=== PATIENT | female | born 1955 | race Caucasian/White ===

== ENCOUNTER → 2020-05-07 | Outpatient (CLI) | payer MEDICAID ==
[~2020-05-07] MED LIST: CHOL100053 PO; FURO40TA5 PO; LEVO137T2 PO; LISI40TA4 PO; METO50TA18 PO; PANT40TA54 PO; REGADENOSON 0.4 MG/5 ML PF SYG IVP SCH
== END | disposition home or self-care (01) ==
LOC: SHCH 07:40
PROVIDERS: ATTEND Internal Medicine Cardiovascular Disease
DX: I35.0 Nonrheumatic aortic (valve) stenosis (principal); R07.9 Chest pain, unspecified; I10 Essential (primary) hypertension; R10.9 Unspecified abdominal pain; R51.9 Headache, unspecified; R11.0 Nausea
CPT/HCPCS: 78452; 93017; 96374; A9500 ×2; J2785

== ENCOUNTER → 2023-06-18 | Outpatient (CLI) | payer MEDICARE ==
[~2023-06-18] MED LIST changes: -LISI40TA4 PO; +LISI40TA9 PO; -REGADENOSON 0.4 MG/5 ML PF SYG IVP SCH
[2023-06-18 12:20] LABS: BASOPHILS # (AUTO) 0.02 K/uL (0.00-0.20); BASOPHILS % (AUTO) 0.2 % (0.0-5.0); EOSINOPHILS # (AUTO) 0.22 K/uL (0.00-0.70); EOSINOPHILS % (AUTO) 2.6 % (0.0-8.0); IMMATURE GRANULOCYTE ABSOLUTE 0.05 K/uL (0-1); LYMPHOCYTES # (AUTO) 2.5 K/uL (1.0-4.8); LYMPHOCYTES % (AUTO) 29.9 % (21.0-51.0); MEAN CORPUSCULAR HEMOGLOBIN 26.6 pg (27.0-33.0); MEAN CORPUSCULAR HGB CONC 32.5 g/dL (32.0-36.0); MEAN CORPUSCULAR VOLUME 81.8 fL (79-99); MONOCYTES # (AUTO) 0.6 K/uL (0.1-1.0); MONOCYTES % (AUTO) 7.1 % (3.0-13.0); NEUTROPHILS % (AUTO) 59.6 % (40.0-77.0); PLATELET COUNT (AUTO) 239 K/uL (130-400); RED BLOOD CELL COUNT(AUTO) 4.89 MIL/uL (4.00-5.50); RED CELL DISTRIBUTION WIDTH 14.9 % (11.0-15.5); WHITE BLOOD COUNT (AUTO) 8.4 K/uL (4.8-10.8)
[2023-06-18 12:53] LABS: ALBUMIN 3.4 g/dL (3.5-5.0); BILIRUBIN,TOTAL 0.7 mg/dL (0.2-1.0); POTASSIUM 4.6 mmol/L (3.5-5.1); T4 (THYROXINE) 12.7 ug/dL (4.7-13.3); THYROID STIMULATING HORMONE 1.59 uIU/mL (0.36-3.74); TOTAL PROTEIN, SERUM 7.1 g/dL (6.0-8.3)
== END | disposition home or self-care (01) ==
LOC: LAB 10:20
PROVIDERS: ATTEND Physician Assistant
DX: I10 Essential (primary) hypertension (principal)
CPT/HCPCS: 36415; 80053; 84436; 84443; 84479; 85025

== ENCOUNTER → 2023-09-07 | Outpatient (CLI) | payer MEDICARE, MEDICAID | END | disposition home or self-care (01) | LOC: RAH 10:26 | PROVIDERS: ATTEND Internal Medicine Cardiovascular Disease | DX: I35.0 Nonrheumatic aortic (valve) stenosis (principal) | CPT/HCPCS: 93306 ==

== ENCOUNTER → 2023-09-24 | Outpatient (CLI) | payer MEDICARE, MEDICAID ==
[2023-09-24] MEDS: REGADENOSON 0.4 MG/5 ML PF SYG IVP ONE (12:43)
== END | disposition home or self-care (01) ==
LOC: SHCH 09:05
PROVIDERS: ATTEND Internal Medicine Cardiovascular Disease
DX: I35.0 Nonrheumatic aortic (valve) stenosis (principal); I25.10 Atherosclerotic heart disease of native coronary artery without angina pectoris
CPT/HCPCS: 78452; 96374; 93017; J2785; A9500 ×2

== ENCOUNTER 2023-12-28 19:00 | Inpatient (IN) | payer MEDICARE, MEDICAID ==
[~2023-12-28] VITALS: Ht 157.5 cm; Wt 138.6 kg
[2023-12-28 12:09] LABS: BASOPHILS # (AUTO) 0.02 K/uL (0.00-0.20); BASOPHILS % (AUTO) 0.3 % (0.0-5.0); EOSINOPHILS # (AUTO) 0.32 K/uL (0.00-0.70); EOSINOPHILS % (AUTO) 4.3 % (0.0-8.0); IMMATURE GRANULOCYTE ABSOLUTE 0.03 K/uL (0-1); LYMPHOCYTES # (AUTO) 2.4 K/uL (1.0-4.8); LYMPHOCYTES % (AUTO) 31.8 % (21.0-51.0); MEAN CORPUSCULAR HEMOGLOBIN 26.9 pg (27.0-33.0); MEAN CORPUSCULAR HGB CONC 31.5 g/dL (32.0-36.0); MEAN CORPUSCULAR VOLUME 85.6 fL (79-99); MONOCYTES # (AUTO) 0.6 K/uL (0.1-1.0); MONOCYTES % (AUTO) 8.4 % (3.0-13.0); NEUTROPHILS % (AUTO) 54.8 % (40.0-77.0); PLATELET COUNT (AUTO) 190 K/uL (130-400); RED BLOOD CELL COUNT(AUTO) 4.79 MIL/uL (4.00-5.50); RED CELL DISTRIBUTION WIDTH 15.9 % (11.0-15.5); WHITE BLOOD COUNT (AUTO) 7.4 K/uL (4.8-10.8)
[2023-12-28 12:36] LABS: CREATININE 1.1 mg/dL (0.5-1.0)
[2023-12-28 12:52] VITALS: BP 145/55; PULSE 62; RESP 16
[~2023-12-28 19:00] MED LIST changes: -CHOL100053 PO; -FURO40TA5 PO; +MVI PO; +ONDA-243 PO; +TIRZ2.5P SQ
[2023-12-30] VITALS (28 sets, daily range): BP systolic 122–165; BP diastolic 55–81; PULSE 60–99; RESP 14–20; O2SAT 96–98
[2023-12-30] MEDS: 0.9%NACL 1000ML 1,000 ML IV ONE (08:22)
[2023-12-30] MEDS: CEFAZOLIN SODIUM 2 GM VIAL ONE (08:22)
[2023-12-30] MEDS ORDERED: FENTANYL CITRATE PF 50 MCG/1 ML 2ML VIAL ONE (10:45)
[2023-12-30] MEDS ORDERED: ROCURONIUM BROMIDE 10MG/1ML 5ML VL ONE ×2 (10:45→12:25)
[2023-12-30] MEDS ORDERED: LIDOCAINE PF 100MG/5ML (2%) SYRINGE 5ML ONE (10:45)
[2023-12-30] MEDS ORDERED: PROPOFOL 10 MG/ML 20ML VIAL IV ONE (10:45)
[2023-12-30] MEDS: ACETAMINOPHEN 1,000 MG/100 ML VIAL IV ONE (11:22)
[2023-12-30] MEDS: FAMOTIDINE 20MG VIAL IV ONE (11:22)
[2023-12-30] MEDS ORDERED: KETAMINE 50MG/ML SYRINGE 50 MG/ML DISP.SYRIN ONE (11:23)
[2023-12-30] MEDS: METRONIDAZOLE 500MG/100ML BAG 200 ML ONE (11:38)
[2023-12-30] MEDS ORDERED: DEXAMETHASONE SOD PHOSPHATE 10MG/ML 1ML VIAL ONE (11:59)
[2023-12-30] MEDS ORDERED: ONDANSETRON 4MG INJ ONE (11:59)
[2023-12-30] MEDS ORDERED: GLYCOPYRROLATE 0.2 MG/ML 5 ML VIAL ONE (12:08)
[2023-12-30] MEDS ORDERED: EPHEDRINE SULFATE 50 MG/ML AMPULE ONE (12:17)
[2023-12-30] MEDS: BUPIVACAINE/PF 0.5% 30ML VIAL ONE (13:31)
[2023-12-30] MEDS ORDERED: NEOSTIGMINE METHYLSULFATE 1MG/ML IV ONE (13:59)
[2023-12-30] MEDS ORDERED: KETOROLAC 30MG VIAL (30MG/ML) IV PRN (14:30)
[2023-12-30] MEDS ORDERED: ONDANSETRON 4MG INJ IVP PRN (14:30)
[2023-12-30] MEDS ORDERED: HYDROMORPHONE 1 MG INJ IVP PRN (14:30)
[2023-12-30] MEDS ORDERED: HYDROCODONE/ACETAMINOPHEN 7.5/325 MG 15 ML UDCUP PO PRN (14:30)
[2023-12-30] MEDS: INDOCYANINE GREEN 25 MG VIAL IJ ONE (14:39)
[2023-12-30] MEDS: ONDANSETRON 4MG INJ ONE (14:48)
[2023-12-30] MEDS: METOCLOPRAMIDE 10 MG/2 ML VIAL ONE (15:19)
[2023-12-30] MEDS: PROCHLORPERAZINE 10MG/2ML INJ IV PRN (15:55)
[2023-12-30] MEDS: LACTATED RINGERS 1000ML 1,000 ML IV SCH (15:56)
[2023-12-30] MEDS: ENOXAPARIN SODIUM 30 MG/0.3 ML SQ SCH (15:56)
[2023-12-30] MEDS: FAMOTIDINE 20MG VIAL IV SCH (20:43)
[2023-12-30] MEDS: METOPROLOL TARTRATE 50 MG TAB PO SCH (20:44)
[2023-12-30] MEDS: KETOROLAC 15MG/ML VIAL (15MG/ML) IV PRN (22:24)
[2023-12-30] MEDS: KETOROLAC 15MG/ML VIAL (15MG/ML) ONE (22:24)
[2023-12-31 04:00] VITALS: BP 120/76; PULSE 76; RESP 20
[2023-12-31 07:31] VITALS: BP 127/55; PULSE 82; RESP 18
[2023-12-31 08:00] VITALS: O2SAT 96
[2023-12-31 11:46] VITALS: BP 129/60; PULSE 72; RESP 19
[2023-12-31 16:01] VITALS: BP 122/40; PULSE 84; RESP 18
== END 2023-12-31 18:41 | disposition home or self-care (01) | DRG 621 ==
LOC: DAHIP 12-30 07:09 → 3DH 12-30 15:45
PROVIDERS: ADMIT Surgery; ATTEND Surgery
PROC: 0DJ08ZZ Inspection of Upper Intestinal Tract, Via Natural or Artificial Opening Endoscopic (ICD-10-PCS; 2023-12-30)
PROC: 0DBL4ZX Excision of Transverse Colon, Percutaneous Endoscopic Approach, Diagnostic (ICD-10-PCS; 2023-12-30)
PROC: 0D164ZA Bypass Stomach to Jejunum, Percutaneous Endoscopic Approach (ICD-10-PCS; principal; 2023-12-30 13:40)
PROC: 0DB64ZZ Excision of Stomach, Percutaneous Endoscopic Approach (ICD-10-PCS; 2023-12-30 13:40)
PROC: 0FB04ZX Excision of Liver, Percutaneous Endoscopic Approach, Diagnostic (ICD-10-PCS; 2023-12-30 13:40)
DX: E66.01 Morbid (severe) obesity due to excess calories (principal); K31.84 Gastroparesis; K30 Functional dyspepsia; E11.43 Type 2 diabetes mellitus with diabetic autonomic (poly)neuropathy; M13.88 Other specified arthritis, other site; I10 Essential (primary) hypertension; Z85.038 Personal history of other malignant neoplasm of large intestine; Z79.899 Other long term (current) drug therapy; Z90.49 Acquired absence of other specified parts of digestive tract; Z90.710 Acquired absence of both cervix and uterus; Z68.43 Body mass index [BMI] 50.0-59.9, adult
CPT/HCPCS: 36415; 43235; 80048; 82948; 85025; 86850; 86900; 86901; 88307; 88313; 88331; 88332; 93005; G0378; J0780; J1100; J1650; J1885; J2001; J2405; J2704; J2710; J2765; J3010; J3490; J7030; A4215; A4221; A4222; A4223; A4600; A4649; A4663; A4930; A6260; C1769; C9250; G0168; J0665; J0690

== ENCOUNTER → 2024-01-20 | Outpatient (CLI) | payer MEDICARE ==
[2024-01-20 16:27] LABS: BASOPHILS # (AUTO) 0.03 K/uL (0.00-0.20); BASOPHILS % (AUTO) 0.4 % (0.0-5.0); EOSINOPHILS # (AUTO) 0.29 K/uL (0.00-0.70); EOSINOPHILS % (AUTO) 3.9 % (0.0-8.0); HEMATOCRIT 40.6 % (36-48); IMMATURE GRANULOCYTE ABSOLUTE 0.03 K/uL (0-1); LYMPHOCYTES # (AUTO) 2.6 K/uL (1.0-4.8); LYMPHOCYTES % (AUTO) 34.6 % (21.0-51.0); MEAN CORPUSCULAR HGB CONC 32.3 g/dL (32.0-36.0); MEAN CORPUSCULAR VOLUME 83.7 fL (79-99); MONOCYTES # (AUTO) 0.6 K/uL (0.1-1.0); MONOCYTES % (AUTO) 7.7 % (3.0-13.0); NEUTROPHILS # (AUTO) 3.9 K/uL (1.8-7.7); PLATELET COUNT (AUTO) 213 K/uL (130-400); RED BLOOD CELL COUNT(AUTO) 4.85 MIL/uL (4.00-5.50); RED CELL DISTRIBUTION WIDTH 15.6 % (11.0-15.5); WHITE BLOOD COUNT (AUTO) 7.4 K/uL (4.8-10.8)
[2024-01-20 16:41] LABS: ALBUMIN 3.6 g/dL (3.5-5.0); CREATININE 0.8 mg/dL (0.5-1.0); MAGNESIUM 1.8 mg/dL (1.80-2.40); POTASSIUM 4.3 mmol/L (3.5-5.1); TOTAL PROTEIN, SERUM 7.1 g/dL (6.0-8.3)
== END | disposition home or self-care (01) ==
LOC: LAB 13:04
PROVIDERS: ATTEND Physician Assistant
DX: I10 Essential (primary) hypertension (principal); I35.0 Nonrheumatic aortic (valve) stenosis
CPT/HCPCS: 36415; 80053; 83735; 85025

== ENCOUNTER → 2024-03-01 | Outpatient (CLI) | payer MEDICARE | END | disposition home or self-care (01) | LOC: RAH 07:57 | PROVIDERS: ATTEND Surgery | DX: K31.84 Gastroparesis (principal); K30 Functional dyspepsia; Z98.890 Other specified postprocedural states | CPT/HCPCS: 74240 ==

== ENCOUNTER → 2024-04-21 | Outpatient (CLI) | payer OTHER ==
[2024-04-21 13:02] LABS: BASOPHILS # (AUTO) 0.02 K/uL (0.00-0.20); BASOPHILS % (AUTO) 0.3 % (0.0-5.0); EOSINOPHILS # (AUTO) 0.17 K/uL (0.00-0.70); EOSINOPHILS % (AUTO) 2.6 % (0.0-8.0); IMMATURE GRANULOCYTE ABSOLUTE 0.03 K/uL (0-1); LYMPHOCYTES # (AUTO) 1.9 K/uL (1.0-4.8); LYMPHOCYTES % (AUTO) 29.7 % (21.0-51.0); MEAN CORPUSCULAR HGB CONC 31.4 g/dL (32.0-36.0); MONOCYTES # (AUTO) 0.5 K/uL (0.1-1.0); MONOCYTES % (AUTO) 8.2 % (3.0-13.0); NEUTROPHILS # (AUTO) 3.8 K/uL (1.8-7.7); NEUTROPHILS % (AUTO) 58.7 % (40.0-77.0); PLATELET COUNT (AUTO) 181 K/uL (130-400); RED BLOOD CELL COUNT(AUTO) 4.83 MIL/uL (4.00-5.50); RED CELL DISTRIBUTION WIDTH 15.2 % (11.0-15.5); WHITE BLOOD COUNT (AUTO) 6.5 K/uL (4.8-10.8)
[2024-04-21 13:15] LABS: ALBUMIN 3.3 g/dL (3.5-5.0); BILIRUBIN,TOTAL 1.2 mg/dL (0.2-1.0); CREATININE 0.9 mg/dL (0.5-1.0); MAGNESIUM 1.9 mg/dL (1.80-2.40); POTASSIUM 4.7 mmol/L (3.5-5.1); TOTAL PROTEIN, SERUM 6.7 g/dL (6.0-8.3)
== END | disposition home or self-care (01) ==
LOC: LAB 09:08
PROVIDERS: ATTEND Physician Assistant
DX: I10 Essential (primary) hypertension (principal); I35.0 Nonrheumatic aortic (valve) stenosis
CPT/HCPCS: 36415; 80053; 83735; 85025

== ENCOUNTER 2024-09-14 06:05 | Day surgery (SDC) | payer OTHER ==
[2024-09-14] VITALS (11 sets, daily range): BP systolic 115–151; BP diastolic 60–72; PULSE 58–68; RESP 15–16; TEMP 97.3–97.6
[~2024-09-14] VITALS: Ht 154.9 cm; Wt 94.3 kg
[~2024-09-14 06:05] MED LIST changes: +MULT-1203 PO; -MVI PO; +OMEP40CA21 PO; -ONDA-243 PO; -PANT40TA54 PO; -TIRZ2.5P SQ
[2024-09-14] MEDS: 0.9%NACL 1000ML 1,000 ML IV ONE (07:18)
[2024-09-14] MEDS ORDERED: proPOFol 10 MG/ML 20ML VIAL IV ONE (07:57)
[2024-09-14] MEDS ORDERED: LIDOCAINE PF 100MG/5ML (2%) SYRINGE 5ML ONE (07:58)
--- NOTE | 2024-09-14 09:21 | NUR ---
Full and complete Discharge Instructions given to Patient and Family both verbally and in writing.. All questions answered.Voiced understanding to GI procedure precautions and Follow Up. PIV removed with catheter tip intact. Denies c/o pain or discomfort. W/C to POV with Family to home.
== END 2024-09-14 09:15 | disposition home or self-care (01) ==
LOC: ENDO 06:05 → DAH 06:05 → ENDO 09:15 → EDSTATUS 12:00
PROVIDERS: ATTEND Surgery
DX: R13.14 Dysphagia, pharyngoesophageal phase (principal); K21.00 Gastro-esophageal reflux disease with esophagitis, without bleeding; K22.89 Other specified disease of esophagus; K31.84 Gastroparesis; I10 Essential (primary) hypertension; E11.9 Type 2 diabetes mellitus without complications; M19.90 Unspecified osteoarthritis, unspecified site; E66.01 Morbid (severe) obesity due to excess calories; K76.0 Fatty (change of) liver, not elsewhere classified; G47.30 Sleep apnea, unspecified; Z99.89 Dependence on other enabling machines and devices; Z88.1 Allergy status to other antibiotic agents; Z88.8 Allergy status to other drugs, medicaments and biological substances; Z90.710 Acquired absence of both cervix and uterus; Z90.49 Acquired absence of other specified parts of digestive tract; Z90.89 Acquired absence of other organs; Z98.0 Intestinal bypass and anastomosis status; Z79.899 Other long term (current) drug therapy
CPT/HCPCS: 43239; J7030 ×2; J2003; J2704; A4620; A4215; A4223; A4657; A4222; A4221; A4663; A4606; J3490